=== PATIENT | female | born 1955 | race Caucasian/White ===

== ENCOUNTER → 2017-03-17 | Outpatient (CLI) | payer OTHER | LOC: FIMAGING 08:30 | PROVIDERS: ATTEND Family Medicine | DX: Z12.31 Encounter for screening mammogram for malignant neoplasm of breast (principal); N95.0 Postmenopausal bleeding; D25.9 Leiomyoma of uterus, unspecified | CPT/HCPCS: G0202 ==

== ENCOUNTER 2017-04-28 05:49 | Day surgery (SDC) | payer OTHER ==
--- NOTE | 2017-04-05 10:13 | GHP ---
[f rep st] PREOP HISTORY AND PHYSICAL Amended report PLANNED PROCEDURE: Hysteroscopy with morcellation of endometrial tissue. INDICATION: Postmenopausal bleeding. HISTORY OF PRESENT ILLNESS: The patient is a 62-year-old, 2, para 2-0-0 -2, who has been postmenopausal since 52. The patient has never been on hormone replacement. She has never had any issues, and in January, she went to the bathroom and noticed dried blood in her underwear. She did not have any bleeding with wiping or did not notice any other bleeding until 3 weeks later when she also noticed red blood in her underwear. She had an ultrasound done, which showed a uterus measuring 6.8 x 4.3 x 3.4 cm with an endometrial thickness of 11 mm and a small fundal myometrial fibroid. The endometrial cavity at the fundus was somewhat heterogeneous, containing septations and complex fluid. No solid masses or Doppler flow was noted. Ovaries were unremarkable. The patient presented to discuss management options. We discussed endometrial biopsy in the office versus hysteroscopy with morcellation of endometrial tissue. Patient would like to proceed with a hysteroscopy. Risks and benefits have been reviewed with the patient. The patient has been properly consented. MEDICAL HISTORY: Postmenopausal bleeding, osteopenia. MEDICATIONS: None. SURGICAL HISTORY: section in 1982, compound fracture reduction in 1994 , ACL reconstruction in 1998 and pin removal in 1999. She had a hysteroscopy with removal of a polyp when she was perimenopausal. ALLERGIES: Penicillin reaction as a child. Sulfa, which causes a rash. SOCIAL HISTORY: The patient is . She denies tobacco or drug use. She does drink 3 alcoholic beverages a week. FAMILY MEDICAL HISTORY: Noncontributory. BEEF SELECTOR HISTORY: Menarche age 11. She has been postmenopausal since 52. She is a 2, para 2-0-0-2. She had a primary section for breech presentation, followed by a vaginal after section. The patient does have a remote history of an abnormal Pap smear. She had a biopsy and cryosurgery, but repeat Paps have all been negative. The patient denies any history of any sexually transmitted diseases besides HPV. REVIEW OF SYSTEMS: A 10-point review of systems is negative with the exception of the above-mentioned pertinent positives of postmenopausal bleeding. PHYSICAL EXAM: VITAL SIGNS: 102/60. Her weight is 113. GENERAL APPEARANCE: Alert and oriented x3. PSYCH: She has appropriate mood and affect. NEURO: Grossly intact. SKIN: Warm, dry. No rashes, ulcers, or lesions. NECK: Mobile and supple, nontender. HEART: Rate is regular, regular. LUNGS: Clear to auscultation bilaterally. ABDOMEN: Soft, nondistended, nontender. EXTREMITIES: Reveal no calf tenderness or edema. MUSCULOSKELETAL: Intact. Pelvic ultrasound is described above. ASSESSMENT/PLAN: A 62-year-old, 2, para 2-0-0-2 with thickened endometrium and postmenopausal bleeding. She will undergo a hysteroscopy with morcellation of endometrial tissue. Risks have been reviewed with the patient. The patient has been properly consented. /[id number]/MODL Add acc#, 04/13/17, janes MCGREGOR
[2017-04-28] MEDS ORDERED: LR 1,000 ML IV ONE (06:07)
[2017-04-28] MEDS ORDERED: LIDOCAINE 1% 2 ML INJ ID PRN (06:34)
[2017-04-28] MEDS ORDERED: LIDOCAINE 1% 2 ML INJ ONE (06:37)
[2017-04-28] MEDS ORDERED: MIDAZOLAM 2 MG/2 ML VIAL IVP ONE (06:51)
--- NOTE | 2017-04-28 06:53 | PDANEPAE ---
ANE History of Present Illness hysteroscopy, morcellator ANE Past Medical History - Cardiovascular History Hx Hypertension: No Hx Arrhythmias: No Hx Chest Pain: No Hx Coronary Artery / Peripheral Vascular Disease: No Hx CHF / Valvular Disease: No Hx Palpitations: No Cardiovascular History Comment: OCCAS IRREG RHYTHM IN PAST. BP RUNS LOW - W/ FAINTING - Pulmonary History Hx COPD: No Hx Asthma/Reactive Airway Disease: No Hx Recent Upper Respiratory Infection: No Hx Oxygen in Use at Home: No Hx Sleep Apnea: No Sleep Apnea Screening Result - Last Documented: Negative - Neurologic History Hx Cerebrovascular Accident: No Hx Seizures: No Hx Dementia: No - Endocrine History Hx Diabetes: No - Renal History Hx Renal Disorders: No - Liver History Hx Hepatic Disorders: No - Neurological & Psychiatric Hx Hx Neurological and Psychiatric Disorders: No - Cancer History Hx Cancer: No - Congenital Disorder History Hx Congenital Disorders: No - GI History Hx Gastrointestinal Disorders: No - Other Health History Other Health History: OCCAS RASHES - Chronic Pain History Chronic Pain: No - Surgical History Prior Surgeries: C SECTION. FX REDUCTION L. ACL REPAIR L. HARDWARE REM ANE Review of Systems Review of systems is: negative Review of Systems: - Exercise capacity Exercise capacity: >=4 METS METS (RN): 5 METS ANE Patient History - Allergies Allergies/Adverse Reactions: Penicillins Allergy (Verified 04/21/17 11:10) Sulfa (Sulfonamide Antibiotics) Allergy (Verified 04/21/17 11:10) Hives - Home Medications Home medications: home medication list seen and reviewed Home Medications: Calcium 04/21/17 [Last Taken Unknown] - NPO status NPO Status: no food or drink >8 hours NPO Since - Liquids (Date): 04/28/17 NPO Since - Liquids (Time): 12:00 NPO Since - Solids (Date): 04/27/17 NPO Since - Solids (Time): 18:00 - Anes Hx Anes Hx: no prior problems - Smoking Hx Smoking Status: Never smoked - Family Anes Hx Family Anes Hx: none Family Hx Anesthesia Complications: NEG ANE Labs/Vital Signs - Vital Signs Blood Pressure: 117/68 Heart Rate: 62 Respiratory Rate: 16 O2 Sat (%): 98 Height: 160.02 cm Weight: 49.895 kg ANE Physical Exam - Airway Neck exam: FROM Mallampati Score: Class 1 Mouth exam: normal dental/mouth exam - Pulmonary Pulmonary: no respiratory distress - Cardiovascular Cardiovascular: regular rate and rhythym - ASA Status ASA Status: I ANE Anesthesia Plan Lines/Monitors: arterial line Specialized Airway: video laryngoscope Total IV Anesthesia: Yes
[2017-04-28] MEDS ORDERED: LIDOCAINE 2% 100 MG/5 ML SYR ONE (07:08)
[2017-04-28] MEDS ORDERED: PROPOFOL/EMULSION 500 MG/50 ML BOTTLE IV ONE (07:08)
[2017-04-28] MEDS ORDERED: SILVER NITRATE APPLICATOR 1 APPL TP ONE (07:11)
[2017-04-28] MEDS ORDERED: LIDOCAINE 1% 300 MG/30 ML SDV ONE (07:11)
[2017-04-28] MEDS ORDERED: OXYCODONE/APAP 5/325 TAB PO PRN (07:18)
[2017-04-28] MEDS ORDERED: PROMETHAZINE HCL 25 MG/ML INJ IVP PRN (07:18)
[2017-04-28] MEDS ORDERED: HYDROCODONE/APAP 5/325 TAB PO PRN (07:18)
[2017-04-28] MEDS ORDERED: fentaNYL 100 MCG/2 ML INJ IVP PRN (07:18)
[2017-04-28] MEDS ORDERED: ONDANSETRON 4 MG/2 ML VIAL IVP PRN (07:18)
[2017-04-28] MEDS ORDERED: MEPERIDINE 25 MG/ML SYR IVP PRN (07:18)
[2017-04-28] MEDS ORDERED: HYDROmorphONE/DILAUDID 1 MG/ML INJ IVP PRN (07:18)
[2017-04-28] MEDS ORDERED: DEXAMETHASONE 4 MG/ML VIAL IVP PRN (07:18)
[2017-04-28] MEDS ORDERED: NALOXONE HCL 0.4 MG/ML INJ IVP PRN (07:18)
--- NOTE | 2017-04-28 07:19 | PDHPUP ---
History & Physical Update H&P update statement: This history and physical update is based on an assessment of the patient which was completed after admission or registration (within 24 hours), but prior to the surgery/procedure. no changes except patient "tweaked" her back. has done so before. pcp is out of town so has not had muscle relaxers. would like rx for flexeril when goes home. ready to proceed. H&P update: H&P reviewed & patient examined
--- NOTE | 2017-04-28 07:44 | POSTANESTH ---
Post Anesthetic Evaluation Cardiovascular Status: Normal, Stable, Similar to Pre-Op Cond Respiratory Status: Normal, Stable, Similar to Pre-op Cond. Level of Consciousness/Mental Status: Can Participate in Eval, Moderately Sleepy Pain Control: Adequate, Prn Tx Ordered Nausea/Vomiting Control: Adequate, Prn Tx Ordered Complications Possibly Related to Anesthesia: None Noted
[2017-04-28 09:08] VITALS: O2SAT 96
[2017-04-28 09:57] VITALS: BP 119/85; PULSE 62; RESP 16; TEMP 98.2
--- NOTE | 2017-04-28 15:22 | GOP ---
[f rep st] OPERATIVE REPORT DATE OF OPERATION: 04/28/2017 SURGEON: Mindi Zhang DO ANESTHESIA: Propofol with local cervical block. ANESTHESIOLOGIST: Shaun PREOPERATIVE DIAGNOSIS: Postmenopausal bleeding. POSTOPERATIVE DIAGNOSIS: Postmenopausal bleeding. PROCEDURE PERFORMED: Hysteroscopy with morcellation of endometrial tissue. FINDINGS: 1. Mobile small mid position uterus with no adnexal masses. 2. Hysteroscopic findings: Posteriorly thickened endometrium, bilateral tubal ostia visualized. No other obvious polyps or fibroids. SPECIMENS: Endometrial curettings. ESTIMATED BLOOD LOSS: 10 cc. INDICATIONS: Patient is a 62-year-old 2, para 2-0-0-2, who has been postmenopausal since 52. Patient has never been on hormone replacement. She has not had any issues since menopause. In Jan, she went to the bathroom and noticed dried blood in her underwear. She did not have any bleeding with wiping and did not notice any other bleeding symptoms until 3 weeks later when she noticed blood in her underwear again. She had an ultrasound performed which showed uterus measuring 6.8 x 4.3 x 3 .9 cm with an endometrial thickness of 11 mm. Ovaries were unremarkable. Management options were re viewed with the patient. Decision was made to proceed with a hysteroscopy with morcellation of endom etrial tissue. DESCRIPTION OF PROCEDURE: Patient was taken to the operating room with intravenous fluids in place. She was then placed on the operating room table in the dorsal supine position where anesthesia with propofol was obtained. She was placed in the dorsal lithotomy position with the Fredylltipn stirrups, a nd prepped and draped in normal sterile fashion. Exam under anesthesia revealed a mobile, midpositio n uterus with no adnexal masses. A speculum was then placed in the patient's vagina. An Allis clamp was used to grasp the anterior lip of the cervix and the cervix was then carefully dilated to allow for the introduction of an operative hysteroscope. The hysteroscope was then introduced with fluid m edium running. A thickening in the posterior lining of the uterus was noted. The remainder of the e ndometrial cavity was thin and bilateral tubal ostia were visualized. The morcellator was then intro duced and morcellation was performed without difficulty. Bleeding was minimal. Instruments were the n removed from the patient's vagina. The patient was returned to the dorsal supine position where sh e was easily awoken from anesthesia. Sponge count was correct. The patient was transported to [facility] room in stable condition. /[id number]/MODL
== END 2017-04-28 09:45 | disposition home or self-care (01) ==
LOC: FSGY 05:49
PROVIDERS: ATTEND Obstetrics & Gynecology
PROC: 0UDB8ZZ Extraction of Endometrium, Via Natural or Artificial Opening Endoscopic (ICD-10-PCS; principal; 2017-04-28 07:15)
DX: R93.8 Abnormal findings on diagnostic imaging of other specified body structures (principal); N95.0 Postmenopausal bleeding; M85.80 Other specified disorders of bone density and structure, unspecified site; Z88.0 Allergy status to penicillin; Z88.2 Allergy status to sulfonamides
CPT/HCPCS: C1782; J2001; J2250; J2704

== ENCOUNTER → 2018-04-02 | Outpatient (CLI) | payer OTHER | LOC: FIMAGING 10:56 | PROVIDERS: ATTEND Family Medicine | DX: Z12.31 Encounter for screening mammogram for malignant neoplasm of breast (principal); Z80.3 Family history of malignant neoplasm of breast ==